=== PATIENT | female | born 1965 | race Caucasian/White ===

== ENCOUNTER → 2018-02-03 11:12 | Outpatient (CLI) | payer BC, SELFPAY ==
[2018-02-03 12:00] LABS: Hematocrit 36.9 % (36-46); Hemoglobin 12.7 g/dL (12.0-16.0); Mean Corpuscular HGB Conc 34.5 % (30-36); Mean Corpuscular Hemoglobin 30.7 PG (26-34); Platelet Count 401 X10^3/uL (150-400); Red Blood Cell Count 4.15 X10^6/uL (4.0-5.2); Red Cell Distribution Width 13.9 % (11.6-14.8); White Blood Cell Count 7.6 X10^3/uL (4.5-11.0)
[2018-02-03 12:03] LABS: Alanine Aminotransferase 24 IU/L (9-52); Albumin 4.3 g/dL (3.5-5.0); Albumin Globulin Ratio 1.6 (1.0-2.8); Alkaline Phosphatase 49 U/L (38-126); Aspartate Aminotransferase 17 IU/L (14-36); BUN Creatinine Ratio 16.3 (6-22); Bilirubin Total 0.2 mg/dL (0.2-1.3); Blood Urea Nitrogen 13 mg/dL (7-17); Calcium 9.2 mg/dL (8.4-10.2); Carbon Dioxide 27 mmol/L (22-32); Chloride 107 mmol/L (98-107); Cholesterol 157 mg/dL (140-199); Estimated Glomerular Filt Rate > 60.0 mL/min (>60); Globulin 2.7 g/dL (1.7-4.1); Glucose 100 mg/dL (70-100); HDL Cholesterol 56 mg/dL (40-60); HEMOLYSIS < 15 (0-50); LDL Cholesterol Calculated 87 mg/dL (<100); Sodium 145 mmol/L (137-145); Triglycerides 68 mg/dL (35-150)
[2018-02-03 12:16] LABS: Free T3, Triiodothyronine Free 2.67 pg/mL (2.77-5.27); Free T4, Direct Thyroxine 1.01 ng/dL (0.78-2.19)
[2018-02-03 12:29] LABS: Thyroid Stimulating Hormone 3.27 uIU/mL (0.47-4.68)
== END ==
PROVIDERS: Family Provider Physician Assistant; PCP Physician Assistant; Visit Provider Physician Assistant
DX: E03.9 Hypothyroidism, unspecified (principal); E78.5 Hyperlipidemia, unspecified; F32.9 Major depressive disorder, single episode, unspecified; J45.909 Unspecified asthma, uncomplicated; Z51.81 Encounter for therapeutic drug level monitoring
CPT/HCPCS: 36415; 80053; 80061; 84439; 84443; 84481; 85027

== ENCOUNTER → 2018-04-08 14:54 | Outpatient (CLI) | payer BC, SELFPAY ==
--- NOTE | 2018-04-08 15:00 | DI.MG.S_ITS ---
BILATERAL DIGITAL SCREENING MAMMOGRAM 3D/2D WITH CAD: 04/08/2018 CLINICAL: Routine screening. Family history of breast cancer. Comparison is made to exams dated: 07/23/2012 mammogram, 07/06/2007 mammogram, and 06/25/2006 mammogram - [facility]. The tissue of both breasts is heterogeneously dense. This may lower the sensitivity of mammography. Current study was also evaluated with a Computer Aided Detection (CAD) system. There are benign calcifications in both breasts. No significant masses, calcifications, or other findings are seen in either breast. There has been no significant interval change. IMPRESSION: There is no mammographic evidence of malignancy. A 1 year screening mammogram is recommended. This exam was interpreted at Station ID: [id number]. NOTE: For mammograms, a report in lay terms will be sent to the patient. Approximately 15% of breast malignancies will not be visualized mammographically. In the management of a palpable breast mass, a negative mammogram must not discourage biopsy of a clinically suspicious lesion. Electronically Signed By: Carlin nance/tunde:04/08/2018 17:55:20 letter sent: Normal Exam ACR BI-RADS Category 2: Benign Finding(s) 3342F
== END ==
PROVIDERS: Family Provider Physician Assistant; PCP Physician Assistant; Visit Provider Physician Assistant
DX: Z12.31 Encounter for screening mammogram for malignant neoplasm of breast (principal); Z80.3 Family history of malignant neoplasm of breast
CPT/HCPCS: 77063; 77067

== ENCOUNTER 2018-05-13 12:25 | Day surgery (SDC) | payer BC, SELFPAY ==
[2018-05-13] VITALS (8 sets, daily range): BP systolic 120–195; BP diastolic 64–104; PULSE 58–80; RESP 12–20; TEMP 35.7–37.1; O2SAT 97–100; BMI 22.6
[2018-05-13] MEDS: SODIUM CHLORIDE 0.9% 1,000 ML 200 ML IV (13:29)
--- NOTE | 2018-05-13 13:34 | P.HP_ITS ---
History of Present Illness Date Patient Seen: 05/13/18 Time Patient Seen: 13:32 Chief complaint: [id number] Narrative: 52-year-old female who presents for colorectal screening. She has never had any previous examination for such. On further history denies any recent gastrointestinal symptoms. No nausea, vomiting, abdominal pain, loss of appetite, unexplained weight loss, change in bowel habits, diarrhea, constipation, melena, hematochezia, or bright red blood per rectum. 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) Depression (Chronic) Hyperlipidemia (Chronic 07/18/15) Hypothyroidism (Chronic 07/18/15) Asthma (Chronic 10/19/12) Other mechanical complication of other implanted electronic stimulator of nervous system, initial encounter (Chronic) History of anxiety (Chronic) Mitral valve prolapse (Chronic 07/10/10) Degeneration of intervertebral disc of lumbar region (Chronic) Allergic rhinitis due to pollen (Chronic 01/12/12) GERD (gastroesophageal reflux disease) (Chronic) Herpes (Chronic) Irregular menstrual cycle (Resolved) Kidney stones (Resolved) Surgical History History of fusion of cervical spine (Chronic) Hx of appendectomy (Resolved) Hx of laminectomy (Resolved 10/2012) Hx of tubal ligation (Resolved) History of spinal fusion Status post dilation and curettage Status post exploratory laparotomy Family History Father Drug abuse Rheumatoid arthritis Grandmother Heart disease Mother Alcoholic Arthritis Cancer Diabetes mellitus Heart disease Hypertension High cholesterol History of stroke Social History household members: spouse Smoking Status: Former smoker (I quit 2006) Tobacco: How many years used: 37 second hand exposure: Yes (my smokes) alcohol intake: current (Only on holidays, usually a glass of wine) substance use type: marijuana (medical marijuana) Family & Social History Family History Father Drug abuse Rheumatoid arthritis Grandmother Heart disease Mother Alcoholic Arthritis Cancer Diabetes mellitus Heart disease Hypertension High cholesterol History of stroke Social History: household members spouse Tobacco & Substance use: Smoking Status Former smoker alcohol intake current Meds Home Medications Medication Instructions Recorded Confirmed Type POTASSIUM (#COMPLEXED POTASSIUM) 99 mg PO Q DAY #0 11/05/11 05/13/18 History ascorbic acid (vitamin C) 500 mg PO QDAY #0 04/29/16 05/13/18 History [VITAMIN D3] 400 mg PO QDAY #0 12/22/16 05/13/18 History ferrous sulfate [Feosol] 325 mg PO QDAY #0 12/22/16 05/13/18 History medical marajuana PO 07/16/17 02/08/18 History gabapentin 400 mg capsule See Rx Instructions PO BEDTIME 10/26/17 05/13/18 Rx #180 cap norethindrone acetate-ethinyl 1 tab PO QDAY #63 tab 11/23/17 05/13/18 Rx estradiol 1.5 mg-30 mcg tablet tizanidine 6 mg capsule 6 mg PO TID-QID PRN #90 cap 02/02/18 05/13/18 Rx atorvastatin 20 mg tablet 20 mg PO HS #90 tab 02/08/18 05/13/18 Rx levothyroxine 75 mcg tablet 75 mcg PO HS #90 tab 02/08/18 05/13/18 Rx sertraline 100 mg tablet 100 mg PO Q DAY #30 tab 02/08/18 05/13/18 Rx ondansetron 8 mg disintegrating 8 mg SUBLINGUAL Q8HP PRN #30 odt 03/24/18 05/13/18 Rx tablet fluticasone [Flonase Allergy 1 spray INTRANASAL DAILY PRN 05/13/18 05/13/18 History Relief] omeprazole magnesium [Prilosec OTC] 20 mg PO DAILY PRN 05/13/18 05/13/18 History Allergies Allergy/AdvReac Type Severity Reaction Status Date / Time latex Allergy Mild EDEMA Verified 05/13/18 12:57 fluoxetine AdvReac Severe I DIDN'T Verified 05/13/18 12:57 FEEL LIKE MYSELF, LIKE ON THE OUTSIDE LOOKING IN Review of Systems Review of Systems All systems reviewed & are unremarkable except as noted in HPI and below Exam Vital Signs (past 8 hours): - 05/13/18 13:03 Temperature 98.8 F Pulse Rate 69 Respiratory Rate 16 Blood Pressure 155/88 H Pulse Oximetry 97 Oxygen Delivery Method Room Air Narrative Exam Narrative: Thin female in no acute distress. Alert oriented x3. Sclera nonicteric Regular rate and rhythm No wheezes Abdomen soft, nondistended, nontender Extremities show no clubbing or cyanosis Objective Labs Labs: No recent laboratory or radiographic studies for review Assessment & Plan Assessment & Plan narrative: 52-year-old female requiring colorectal screening by age criteria. Colonoscopy is recommended. Technical details were discussed. Risks, benefits, alternatives explained. Risks including but not limited to sedation, aspiration, bleeding, pain, missed lesion, incomplete examination, need for further radiographic studies, colonic perforation, need for major abdominal surgery, and all attendant risks major surgery were discussed at [facility]. All questions were answered to her satisfaction, and she voiced understanding. Consent was placed on the chart. Proceed as above.
--- NOTE | 2018-05-13 13:34 | PM.PREOP ---
Pre-operative Note Interval Note History & Physical reviewed/Exam performed by Physician: Yes Changes to H&P: No H&P completed within 30 days and has changed as indicated here:: Patient seen and examined today. History and physical examination placed on the chart. Obviously, no changes in the last 15 min. Proceed with colonoscopy today as planned. ASA Class (for procedural sedation): II
[2018-05-13] MEDS: fentaNYL 250 MCG/5 ML INJ IV (13:58)
[2018-05-13] MEDS: MIDAZOLAM 5 MG/5 ML VIAL IV (13:59)
--- NOTE | 2018-05-13 14:05 | PM.OP.ENDO ---
Operative Date/Time/Diagnoses Date of procedure: 05/13/18 Time of procedure: 14:05 Pre-op diagnosis: Colorectal screening Post-op diagnosis: other (Diverticulosis but otherwise normal colon and rectum) Procedure & Clinicians Study performed: 1. Sedation per surgeon 2. Colonoscopy Same procedure as scheduled: Yes Indications: 52-year-old female who presents for colorectal screening by age criteria. Colonoscopy is recommended. Surgeon: Osmany Bailey Procedure Notes SCOAP/Timeout: Yes Procedure in detail: After obtaining informed consent, the patient was brought to the GI suite and placed in the left lateral decubitus position on the examination table. After placement of appropriate monitors, the patient was given incremental doses of Versed and Fentanyl until an appropriate level of sedation was achieved. A time out was held per SCOAP protocol. A digital rectal examination was performed and did not reveal any masses or obstructing lesions. The colonoscope was gently passed into the patient's anus and the entire colon navigated to the level of the cecum with minimal difficulty. Once in the cecum, the scope was withdrawn being sure to go before and beyond all mucosal folds and prominences and get an excellent examination. The findings are noted above. At the level of the rectal vault, the scope was retroflexed and the internal anal canal was examined. The scope was straightened and air aspirated from the colon. The instrument was removed from the patient's body and the procedure was concluded. The patient was allowed to awaken from sedation without difficulty and taken to the post-anesthesia care unit in good condition. Scope withdrawal time: 8:47 min Sedation minutes: 26 Findings: diverticulosis and other findings (Otherwise normal colon and rectum) Specimen(s): none sent Complications: none Recommendations: Colonscopy in 10 years and High fiber diet Plan for aftercare: 1. Discharge home Follow up: as needed Disposition: PACU
--- NOTE | 2018-05-13 15:22 | SUR.PHASEII ---
Pt ambulated to bathroom prior to dc. Pt alert and talking to RN. Pt continues to deny any sob, headache or cp related to blood pressure reading. pt dc to home via Dr. Alexus hutchinson. Pt reminded to take regular scheduled meds once arriving at home and to call MD office if any concerns or symptoms. Pt and pt voiced understanding. Pt asymptomatic and abd soft at time of dc.
== END 2018-05-13 15:15 | disposition home or self-care (01) ==
PROVIDERS: PCP Physician Assistant; Visit Provider Surgery
PROC: 0DJD8ZZ Inspection of Lower Intestinal Tract, Via Natural or Artificial Opening Endoscopic (ICD-10-PCS; CPT 45378; principal; 2018-05-13 14:00)
DX: Z12.11 Encounter for screening for malignant neoplasm of colon (principal); K57.30 Diverticulosis of large intestine without perforation or abscess without bleeding; G89.4 Chronic pain syndrome; F32.9 Major depressive disorder, single episode, unspecified; E78.5 Hyperlipidemia, unspecified; E03.9 Hypothyroidism, unspecified; J45.909 Unspecified asthma, uncomplicated
CPT/HCPCS: 45378; 99152; 99153; J2250; J3010

== ENCOUNTER → 2018-09-17 09:15 | Outpatient (CLI) | payer BC, SELFPAY ==
[2018-09-17 10:18] LABS: Add Manual Diff / Slide Review NO; Basophils Absolute Auto 100 /uL (0-100); Basophils Percent Auto 1.3 % (0-2); Eosinophils Absolute Auto 300 /uL (0-450); Eosinophils Percent Auto 3.1 % (2-4); Hematocrit 36.1 % (36-46); Hemoglobin 12.3 g/dL (12.0-16.0); Lymphocytes Absolute Auto 2200 /uL (1100-4500); Lymphocytes Percent Auto 26.2 % (25-40); Mean Corpuscular HGB Conc 34.1 % (30-36); Mean Corpuscular Hemoglobin 30.3 PG (26-34); Mean Corpuscular Volume 88.9 fL (80-100); Monocytes Absolute Auto 500 /uL (0-900); Monocytes Percent Auto 5.5 % (3-14); Neutrophils Absolute Auto 5400 /uL (1500-7000); Neutrophils Percent Auto 63.9 % (50-75); Platelet Count 426 X10^3/uL (150-400); Red Blood Cell Count 4.06 X10^6/uL (4.0-5.2); Red Cell Distribution Width 13.5 % (11.6-14.8); White Blood Cell Count 8.4 X10^3/uL (4.5-11.0)
[2018-09-17 10:20] LABS: Alanine Aminotransferase 15 IU/L (9-52); Albumin 4.1 g/dL (3.5-5.0); Albumin Globulin Ratio 1.5 (1.0-2.8); Alkaline Phosphatase 45 U/L (38-126); Aspartate Aminotransferase 20 IU/L (14-36); BUN Creatinine Ratio 13.8 (6-22); Bilirubin Total 0.4 mg/dL (0.2-1.3); Blood Urea Nitrogen 11 mg/dL (7-17); Calcium 9.4 mg/dL (8.4-10.2); Carbon Dioxide 29 mmol/L (22-32); Chloride 108 mmol/L (98-107); Cholesterol 156 mg/dL (140-199); Estimated Glomerular Filt Rate > 60.0 mL/min (>60); Globulin 2.8 g/dL (1.7-4.1); Glucose 89 mg/dL (70-100); HDL Cholesterol 50 mg/dL (40-60); HEMOLYSIS < 15 (0-50); LDL Cholesterol Calculated 81 mg/dL (<100); Potassium 4.5 mmol/L (3.4-5.1); Sodium 142 mmol/L (137-145); Total Protein 6.9 g/dL (6.3-8.2); Triglycerides 126 mg/dL (35-150)
[2018-09-17 10:53] LABS: Ferritin 10.4 ng/mL (11.1-264)
[2018-09-17 11:06] LABS: HEMOLYSIS < 15 (0-50); Iron 107 ug/dL (37-170)
--- NOTE | 2018-09-17 11:09 | DI.US.S_ITS ---
PROCEDURE: US PELVIC COMPLETE INDICATIONS: MENORRHAGIA ON OCP'S TECHNIQUE: Real-time scanning was performed of the pelvic organs, with image documentation. Additional endovaginal scanning was necessary due to incomplete visualization of the adnexal and endometrial structures by transabdominal scanning. COMPARISON: [facility], , PELVIC COMPLETE, 04/29/2016, 15:13. FINDINGS: Transabdominal scanning: Limited scanning through the kidneys shows no hydronephrosis. No pathologic free abdominal or pelvic fluid. Endovaginal scanning: Uterus: Uterus is normal in size at 8.2 x 3.6 x 5.1 cm. The endometrium measures 5 mm in combined thickness. Multiple intrauterine fibroids are again noted. They appear to have increased in size. There is a submucosal fibroid on the right side of the uterus measuring 2.0 x 1.9 x 1.9 cm. A subserosal left-sided anterior uterine fibroid measures 1.9 x 1.4 x 1.4 cm. A posterior intramural uterine fibroid is noted slightly left of midline measuring 1.5 x 1.2 x 1.6 cm. Ovaries: The bilateral ovaries were not well visualized do to overlying bowel gas. IMPRESSION: Multi-fibroid uterus as before. The imaged fibroids appear to have increased in size compared to 2017 pelvic ultrasound. Additionally, 2 of the fibroids appear to be submucosal in location and may represent a possible etiology for patient's menorrhagia. Bilateral ovaries were not visualized secondary to overlying bowel gas. Dictated by: Carlin Castillo M.D. on 09/17/2018 at 16:57 Approved by: Carlin Castillo M.D. on 09/17/2018 at 17:13
[2018-09-17 11:18] LABS: Percent Iron Saturation 28 % (15-50); Total Iron Binding Capacity 376 ug/dL (265-497); Transferrin 311 mg/dL (206-381)
[2018-09-17 11:37] LABS: Thyroid Stimulating Hormone 2.82 uIU/mL (0.47-4.68)
== END ==
PROVIDERS: PCP Physician Assistant; Visit Provider Physician Assistant
DX: N92.0 Excessive and frequent menstruation with regular cycle (principal); N92.4 Excessive bleeding in the premenopausal period; Z79.3 Long term (current) use of hormonal contraceptives; D25.1 Intramural leiomyoma of uterus; D25.0 Submucous leiomyoma of uterus; D25.2 Subserosal leiomyoma of uterus; E03.9 Hypothyroidism, unspecified; E78.5 Hyperlipidemia, unspecified; D50.0 Iron deficiency anemia secondary to blood loss (chronic)
CPT/HCPCS: 36415; 76830; 76856; 80053; 80061; 82728; 83540; 83550; 84443; 85025

== ENCOUNTER 2018-10-18 08:21 | Day surgery (SDC) | payer BC, SELFPAY ==
[2018-10-18] VITALS (8 sets, daily range): BP systolic 109–153; BP diastolic 71–95; PULSE 72–99; RESP 12–99; TEMP 36.6–37.3; O2SAT 96–99; BMI 22.1
[2018-10-18] MEDS: SODIUM CHLORIDE 0.9% 1,000 ML 200 ML IV (09:25)
--- NOTE | 2018-10-18 09:47 | PM.PREOP ---
Pre-operative Note Interval Note History & Physical reviewed/Exam performed by Physician: Yes Changes to H&P: No ASA Class (for procedural sedation): II
[2018-10-18] MEDS: LIDOCAINE VISCOUS 2% 15 ML SOLUTION PO (10:15)
[2018-10-18] MEDS: ONDANSETRON 4 MG/2 ML INJ IV (10:16)
[2018-10-18] MEDS: MIDAZOLAM 5 MG/5 ML VIAL IV (10:33)
[2018-10-18] MEDS: fentaNYL 250 MCG/5 ML INJ IV (10:33)
--- NOTE | 2018-10-18 10:53 | PM.OP.ENDO ---
Operative Date/Time/Diagnoses Date of procedure: 10/18/18 Time of procedure: 10:54 Pre-op diagnosis: abdominal pain melena Post-op diagnosis: other (hiatal hernia) Procedure & Clinicians Study performed: esophagoduodenoscopy colonoscopy Same procedure as scheduled: Yes Indications: abdominal pain melena Surgeon: Lamin Lockwood Procedure Notes SCOAP/Timeout: performed Procedure in detail: The bite block was inserted. The endoscope was carefully advanced to the mouth into the esophagus and into the stomach. The stomach had no evidence of gastritis. Retroflexion demonstrated a small hiatal hernia. The pylorus was intubated and was out ulcer. The Z-line was identified and was normal in its appearance. There was no evidence of soft edge itis. The stomach was desufflated and the scope was carefully withdrawn. Next a digital rectal exam was performed which was normal. The colonoscopy was inserted into the of rectum sigmoid advanced through the descending transverse and ascending colon. The ileocecal valve was identified. The scope was carefully withdrawn. The colon was notable only for mild diverticulosis. No polyps or masses were identified. The scope was carefully withdrawn. Scope withdrawal time: 6 Sedation minutes: 31 Findings: diverticulosis and hiatal hernia Specimen(s): none sent Complications: none Impression: normal colonoscopy. Normal esophagoduodenoscopy Recommendations: Other recommendation (Will refer to GI for management of irritable bowel syndrome previously diagnosed. ) Disposition: same day surgery
== END 2018-10-18 12:15 | disposition home or self-care (01) ==
PROVIDERS: PCP Physician Assistant; Visit Provider Surgery
PROC: 0DJ08ZZ Inspection of Upper Intestinal Tract, Via Natural or Artificial Opening Endoscopic (ICD-10-PCS; CPT 43235; principal; 2018-10-18 09:45)
PROC: 0DJD8ZZ Inspection of Lower Intestinal Tract, Via Natural or Artificial Opening Endoscopic (ICD-10-PCS; CPT 45378; 2018-10-18 09:45)
DX: K92.1 Melena (principal); K44.9 Diaphragmatic hernia without obstruction or gangrene; K57.30 Diverticulosis of large intestine without perforation or abscess without bleeding; R10.9 Unspecified abdominal pain; R19.7 Diarrhea, unspecified; E78.5 Hyperlipidemia, unspecified; E03.9 Hypothyroidism, unspecified; J45.909 Unspecified asthma, uncomplicated; K21.9 Gastro-esophageal reflux disease without esophagitis; I34.1 Nonrheumatic mitral (valve) prolapse; F32.9 Major depressive disorder, single episode, unspecified; F41.9 Anxiety disorder, unspecified; Z87.891 Personal history of nicotine dependence
CPT/HCPCS: 43235; 45378; 74177; 99152; 99153; J2250; J2405; J3010; Q9967

== ENCOUNTER → 2018-10-25 13:06 | Outpatient (CLI) | payer BC, SELFPAY ==
--- NOTE | 2018-10-25 13:21 | DI.CT.S_ITS ---
PROCEDURE: CT ABDOMEN PELVIS W CON INDICATIONS: abdominal pain w bloating and nausea TECHNIQUE: After the administration of oral and intravenous contrast, 5 mm thick sections acquired from the diaphragms to the symphysis. 5 mm thick coronal and sagittal reformats were performed. For radiation dose reduction, the following was used: automated exposure control, adjustment of mA and/or kV according to patient size. COMPARISON: Pelvic ultrasound of 09/17/2018. [facility], CT, ABDOMEN/PELVIS WITH CONTRAST, 05/01/2016, 23:47. FINDINGS: Image quality: Excellent. ABDOMEN: Lung bases: Lung bases are clear. Heart size is normal. Solid organs: Liver is normal in size. Hyperdense focus in the posterior medial right lobe, (2/13) is unchanged. Left lobe subcapsular hypodensity which most likely represents a benign cyst or hemangioma, (2/9). Subcentimeter flash filling hemangioma in the inferior right lobe (2/29). Hypodensity at the falciform ligament most likely represents focal fatty infiltration. Punctate extracapsular calcification at lateral to the right lobe, unchanged. Gallbladder is decompressed. No calcified gallstones. No pericholecystic fluid.. Biliary system is non-dilated. Pancreas enhances normally. Spleen is normal in size and enhancement. No adrenal nodules. Kidneys are normal in size and enhancement, without hydronephrosis. Left kidney extrarenal pelvis. Several small nonobstructing renal calculi bilaterally. Peritoneum and bowel: The rectal wall appears somewhat thickened. There is tracer fluid in the pelvis. There appears to be adjacent mesenteric engorgement. Loops of small bowel in the left upper quadrant are also mildly thickened. The stomach is prominent size. No bowel injection. No pneumatosis or pneumoperitoneum. Nodes and vessels: No retroperitoneal or mesenteric adenopathy. Aorta and inferior vena cava are normal in caliber. Mild ectasia of the abdominal aorta. There is noncalcified atherosclerotic plaque which appears similar to 05/01/2016. Mesenteric vessels are patent. Miscellaneous: Tiny fat-containing periumbilical hernia, unchanged. Neurostimulator leads in the mid thorax with the generator device at the left buttocks. PELVIS: Genitourinary: Subserosal fundal fibroid measuring 1.7 cm, (5/36). The fibroid demonstrate central hypodensity which was not appreciated on the note CT from 05/01/2016. No surrounding inflammatory change. Metallic clip in the region of the left adnexa. Bladder is unremarkable. Miscellaneous: No inguinal hernias or adenopathy. Bones: No suspicious bony lesions. Mild DDD most pronounced at L5-S1. No vertebral body compression fractures. IMPRESSION: 1. Nonspecific thickening of the small bowel in the left abdomen and rectum. Trace free fluid in the pelvis.These findings could be seen in enteritis or proctitis. Correlation with inflammatory markers and colonoscopy may be beneficial. 2. Increased hypodensity in a subserosal fundal fibroid which may be due to fibroid degeneration. It is uncertain if this is related to the patient's symptoms. Dictated by: Jelani Mckee M.D. on 10/25/2018 at 16:28 Approved by: Jelani Mckee M.D. on 10/25/2018 at 16:51
== END ==
PROVIDERS: PCP Physician Assistant; Visit Provider Surgery
DX: R10.9 Unspecified abdominal pain (principal); R14.0 Abdominal distension (gaseous); R11.0 Nausea; D25.2 Subserosal leiomyoma of uterus
CPT/HCPCS: 74177; Q9967

== ENCOUNTER → 2019-01-04 13:46 | Outpatient (CLI) | payer BC, SELFPAY ==
[2019-01-04 14:31] LABS: Add Manual Diff / Slide Review NO; Basophils Absolute Auto 100 /uL (0-100); Basophils Percent Auto 0.8 % (0-2); Eosinophils Absolute Auto 100 /uL (0-450); Eosinophils Percent Auto 1.5 % (2-4); Hematocrit 36.2 % (36-46); Hemoglobin 12.2 g/dL (12.0-16.0); Lymphocytes Absolute Auto 2400 /uL (1100-4500); Lymphocytes Percent Auto 26.9 % (25-40); Mean Corpuscular HGB Conc 33.8 % (30-36); Mean Corpuscular Hemoglobin 30.3 PG (26-34); Mean Corpuscular Volume 89.5 fL (80-100); Monocytes Absolute Auto 600 /uL (0-900); Monocytes Percent Auto 6.1 % (3-14); Neutrophils Absolute Auto 5800 /uL (1500-7000); Neutrophils Percent Auto 64.7 % (50-75); Platelet Count 375 X10^3/uL (150-400); Red Blood Cell Count 4.04 X10^6/uL (4.0-5.2); Red Cell Distribution Width 13.6 % (11.6-14.8)
[2019-01-04 16:01] LABS: Ferritin 10.4 ng/mL (11.1-264)
== END ==
PROVIDERS: PCP Physician Assistant; Visit Provider Physician Assistant
DX: R79.0 Abnormal level of blood mineral (principal); R79.89 Other specified abnormal findings of blood chemistry
CPT/HCPCS: 36415; 82728; 85025

== ENCOUNTER → 2019-04-28 15:22 | Outpatient (CLI) | payer BC, SELFPAY ==
--- NOTE | 2019-04-28 15:24 | DI.MG.S_ITS ---
BILATERAL DIGITAL SCREENING MAMMOGRAM 3D/2D WITH CAD: 04/28/2019 CLINICAL: Routine screening. Family history of breast cancer. Comparison is made to exams dated: 04/08/2018 mammogram and 07/23/2012 mammogram - [facility]. The tissue of both breasts is heterogeneously dense. This may lower the sensitivity of mammography. Current study was also evaluated with a Computer Aided Detection (CAD) system. There are benign calcifications in both breasts. No significant masses, calcifications, or other findings are seen in either breast. There has been no significant interval change. IMPRESSION: There is no mammographic evidence of malignancy. A 1 year screening mammogram is recommended. This exam was interpreted at Station ID: [id number]. NOTE: For mammograms, a report in lay terms will be sent to the patient. Approximately 15% of breast malignancies will not be visualized mammographically. In the management of a palpable breast mass, a negative mammogram must not discourage biopsy of a clinically suspicious lesion. Electronically Signed By: Jelani Mckee M.D. [facility] [place]:04/28/2019 19:23:15 letter sent: Normal Exam ACR BI-RADS Category 2: Benign Finding(s) 3342F
== END ==
PROVIDERS: PCP Physician Assistant; Referring Provider Physician Assistant; Visit Provider Physician Assistant
DX: Z12.31 Encounter for screening mammogram for malignant neoplasm of breast (principal); Z80.3 Family history of malignant neoplasm of breast
CPT/HCPCS: 77063; 77067

== ENCOUNTER → 2022-01-07 14:50 | Outpatient (CLI) | payer BC, SELFPAY ==
--- NOTE | 2022-01-07 14:58 | DI.MG.S_ITS ---
BILATERAL DIGITAL SCREENING MAMMOGRAM 3D/2D WITH CAD: 01/07/2022 CLINICAL: Routine screening. Family history of breast cancer. Comparison is made to exams dated: 04/28/2019 mammogram, 04/08/2018 mammogram, and 07/23/2012 mammogram - [facility]. Both breasts are heterogeneously dense, which may obscure small masses (category c / 51-75% glandular tissue). Current study was also evaluated with a Computer Aided Detection (CAD) system. There is an asymmetry in the left breast posterior depth lateral region seen on the craniocaudal view only. No other significant masses, calcifications, or other findings are seen in either breast. IMPRESSION: INCOMPLETE: NEEDS ADDITIONAL IMAGING EVALUATION The asymmetry in the left breast is indeterminate. Exaggerated CC views as well as additional views with possible ultrasound are recommended. Based on Tyrer-Cuzick model (a risk assessment model), the patient's lifetime risk is 20.3% and her 10 year risk is 6.5%. If a patient has an elevated risk, a more comprehensive evaluation should be considered and/or a referral to a genetic counselor. The [place] [employer], [employer], and NCCN Guidelines advise the consideration of Breast MRI as an adjunct to screening mammography in patients whose Lifetime risk to develop breast cancer is 20% or higher. This exam was interpreted at Station ID: [id number]. NOTE: For mammograms, a report in lay terms will be sent to the patient. Approximately 15% of breast malignancies will not be visualized mammographically. In the management of a palpable breast mass, a negative mammogram must not discourage biopsy of a clinically suspicious lesion. Electronically Signed By: Yovana espino/:01/07/2022 16:34:48 letter sent: Additional Imaging Needed ACR BI-RADS Category 0: Incomplete 3340F
--- NOTE | 2022-01-07 14:59 | DI.RAD.S_ITS ---
PROCEDURE: XR FINGER RT MIN 2V INDICATIONS: PAIN IN RIGHT FINGER/THUMB TECHNIQUE: AP hand, 2 views of the 1st finger(s) acquired. COMPARISON: None. FINDINGS: Bones: No fractures or dislocations. Osteoarthritic changes are noted throughout right thumb most notably at 1st CMC joint with near complete loss of joint space, extensive subchondral sclerosis and cyst formation and marginal osteophyte formation. Slight lateral subluxation at 1st CMC joint is also seen. No suspicious bony lesions. Soft tissues: No suspicious soft tissue calcifications. IMPRESSION: Osteoarthritic changes throughout right thumb most notably at 1st CMC joint as above. No fracture or dislocation. Dictated by: Bradley Duncan M.D. on 01/07/2022 at 16:43 Approved by: Bradley Duncan M.D. on 01/07/2022 at 16:45
== END ==
PROVIDERS: PCP Family Medicine; Referring Provider Family Medicine; Visit Provider Family Medicine
DX: Z12.31 Encounter for screening mammogram for malignant neoplasm of breast (principal); M79.644 Pain in right finger(s); M65.4 Radial styloid tenosynovitis [de Quervain]; Z80.3 Family history of malignant neoplasm of breast
CPT/HCPCS: 73140; 77063; 77067

== ENCOUNTER → 2022-03-17 08:40 | Outpatient (CLI) | payer BC, SELFPAY ==
--- NOTE | 2022-03-17 | DI.MG.S_ITS ---
UNILATERAL LEFT DIGITAL DIAGNOSTIC MAMMOGRAM 3D/2D WITH ADDITIONAL VIEWS: 03/17/2022 CLINICAL: Additional evaluation requested from prior study. Comparison is made to exams dated: 01/07/2022 mammogram, 04/28/2019 mammogram, and 04/08/2018 mammogram - [facility]. The left breast is heterogeneously dense, which may obscure small masses (category c / 51-75% glandular tissue). Redemonstration of previously described asymmetry in the left breast posterior depth lateral region seen on the craniocaudal view only. This is less prominent and decreased in size. No other significant masses or calcifications are seen in the breast. IMPRESSION: INCOMPLETE: NEEDS ADDITIONAL IMAGING EVALUATION The asymmetry in the left breast resembles fibroglandular tissue but remains indeterminate. An ultrasound is recommended for further evaluation and is scheduled to immediately follow this examination. Based on Tyrer-Cuzick model (a risk assessment model), the patient's lifetime risk is 20.3% and her 10 year risk is 6.5%. If a patient has an elevated risk, a more comprehensive evaluation should be considered and/or a referral to a genetic counselor. The [place] [employer], [place] [employer], and NCCN Guidelines advise the consideration of Breast MRI as an adjunct to screening mammography in patients whose Lifetime risk to develop breast cancer is 20% or higher. This exam was interpreted at Station ID: [id number]. NOTE: For mammograms, a report in lay terms will be sent to the patient. Approximately 15% of breast malignancies will not be visualized mammographically. In the management of a palpable breast mass, a negative mammogram must not discourage biopsy of a clinically suspicious lesion. Electronically Signed By: Carlin Castillo M.D. [facility]/:03/17/2022 11:00:44 ACR BI-RADS Category 0: Incomplete 3340F
--- NOTE | 2022-03-17 | DI.US.S_ITS ---
ULTRASOUND OF LEFT BREAST AND AXILLA: 03/17/2022 CLINICAL: Patient returns today to evaluate an asymmetry in the left breast. Comparison is made to exams dated: 03/17/2022 mammogram, 01/07/2022 mammogram, 04/28/2019 mammogram, 04/08/2018 mammogram, 07/23/2012 mammogram, and 07/06/2007 mammogram - [facility]. Color flow and real-time ultrasound of the left breast axilla were performed. Price scale images of the real-time examination were reviewed. There is a 0.5 cm x 0.2 cm x 0.5 cm wider than tall oval cyst in the left breast at 3 o'clock posterior depth 5 cm from the nipple. This oval cyst is hypoechoic with internal echoes. This likely correlates with mammography findings. Color flow imaging demonstrates that there is no vascularity present. There also is a 0.7 cm x 0.3 cm x 0.5 cm wider than tall oval mass in the left breast at 3 o'clock anterior depth 1 cm from the nipple. This oval mass is hypoechoic with apparent fatty hilum. Color flow imaging demonstrates that there is central hilar vascularity present. This correlates as an incidental finding. Additionally, there is a 0.3 cm x 0.2 cm x 0.3 cm oval mass in the left breast at 3 o'clock in the retroareolar region. This oval mass is hypoechoic. Color flow imaging demonstrates that there is central vascularity present. In addition, there is an enlarged lymph node with uniform cortex in the left axillary tail. This enlarged lymph node is hypoechoic with fatty hilum and likely reactive in etiology. IMPRESSION: PROBABLY BENIGN The 0.5 cm x 0.2 cm x 0.5 cm wider than tall oval cyst in the left breast at 3 o'clock posterior depth resembles a complicated cyst and is probably benign. The 0.7 cm x 0.3 cm x 0.5 cm wider than tall oval mass in the left breast at 3 o'clock anterior depth resembles a lymph node and is probably benign. The 0.3 cm x 0.2 cm x 0.3 cm oval mass in the left breast at 3 o'clock in the retroareolar region resembles a lymph node and is probably benign. The enlarged lymph node with uniform cortical thickening in the left axillary tail is consistent with a reactive lymph node and is probably benign. A follow-up left mammogram and a left ultrasound in 6 months is recommended to demonstrate stability. Findings and recommendations were conveyed to the patient during today's evaluation. This exam was interpreted at Station ID: [id number]. Electronically Signed By: Carlin Castillo M.D. [facility]/:03/17/2022 11:08:13 letter sent: Followup Recommended Ultrasound BI-RADS: 3 Probably benign
== END ==
PROVIDERS: PCP Family Medicine; Referring Provider Family Medicine; Visit Provider Family Medicine
DX: R92.2 Inconclusive mammogram (principal); N63.25 Unspecified lump in the left breast, overlapping quadrants; N60.02 Solitary cyst of left breast
CPT/HCPCS: 76642; 77065; G0279

== ENCOUNTER → 2022-10-13 11:55 | Outpatient (CLI) | payer BC, SELFPAY ==
--- NOTE | 2022-10-13 | DI.MG.S_ITS ---
UNILATERAL LEFT DIGITAL DIAGNOSTIC MAMMOGRAM 3D/2D SHORT-TERM FOLLOW-UP: 10/13/2022 CLINICAL: Short term follow up for the left breast. Comparison is made to exams dated: 03/17/2022 mammogram, 01/07/2022 mammogram, and 04/28/2019 mammogram - [facility]. The left breast is heterogeneously dense, which may obscure small masses (category c / 51-75% glandular tissue). The asymmetry in the left breast posterior depth lateral region seen on the craniocaudal view only is no longer seen. No other significant masses or calcifications are seen in the breast. IMPRESSION: INCOMPLETE: NEEDS ADDITIONAL IMAGING EVALUATION Negative left mammogram. An ultrasound is recommended to evaluate the previously seen sonographic abnormalities, and will be performed immediately following this exam. Based on Tyrer-Cuzick model (a risk assessment model), the patient's lifetime risk is 20.3% and her 10 year risk is 6.5%. If a patient has an elevated risk, a more comprehensive evaluation should be considered and/or a referral to a genetic counselor. The [place] [employer], [place] [employer], and NCCN Guidelines advise the consideration of Breast MRI as an adjunct to screening mammography in patients whose Lifetime risk to develop breast cancer is 20% or higher. This exam was interpreted at Station ID: [id number]. NOTE: For mammograms, a report in lay terms will be sent to the patient. Approximately 15% of breast malignancies will not be visualized mammographically. In the management of a palpable breast mass, a negative mammogram must not discourage biopsy of a clinically suspicious lesion. Electronically Signed By: Yovana Clayton M.D. lk/:10/13/2022 12:25:34 ACR BI-RADS Category 0: Incomplete 3340F
--- NOTE | 2022-10-13 | DI.US.S_ITS ---
LIMITED ULTRASOUND OF LEFT BREAST AND AXILLA: 10/13/2022 CLINICAL: Patient returns today to evaluate three focal asymmetries in the left breast. Comparison is made to exams dated: 10/13/2022 mammogram, 03/17/2022 ultrasound, 03/17/2022 mammogram, 01/07/2022 mammogram, 04/28/2019 mammogram, and 04/08/2018 mammogram - [facility]. Color flow ultrasound of the left breast axilla was performed. Price scale images of the real-time examination were reviewed. There is a stable oval complicated cyst in the left breast at 3 o'clock posterior depth. This oval complicated cyst is hypoechoic. There also is a stable oval complicated cyst in the left breast at 3 o'clock anterior depth. This oval complicated cyst is hypoechoic. Additionally, there is a stable oval complicated cyst in the left breast at 3 o'clock in the retroareolar region. This oval complicated cyst is hypoechoic. In addition, there is a benign lymph node in the left axillary tail. This lymph node displays fatty hilum. IMPRESSION: PROBABLY BENIGN The lymph node in the left axillary tail is benign. The stable oval complicated cyst in the left breast at 3 o'clock posterior depth is probably benign. The stable oval complicated cyst in the left breast at 3 o'clock anterior depth is probably benign. The stable oval complicated cyst in the left breast at 3 o'clock in the retroareolar region is probably benign. A follow-up ultrasound in 6 months is recommended to demonstrate stability. This exam was interpreted at Station ID: [id number]. Electronically Signed By: Yovana espino/:10/13/2022 13:23:23 letter sent: Followup Recommended Ultrasound BI-RADS: 3 Probably benign
== END ==
PROVIDERS: PCP Family Medicine; Referring Provider Family Medicine; Visit Provider Family Medicine
DX: N60.02 Solitary cyst of left breast (principal); R92.2 Inconclusive mammogram
CPT/HCPCS: 76642; 77065; G0279

== ENCOUNTER 2022-12-11 14:34 | Emergency (ER) | payer BC, SELFPAY ==
[2022-12-11] VITALS (11 sets, daily range): BP systolic 129–182; BP diastolic 73–105; PULSE 60–73; RESP 24; TEMP 36.9; O2SAT 94–99; BMI 20.1
--- NOTE | 2022-12-11 15:44 | ED_ITS ---
HPI - Back Pain/Injury <Chary Greer PA-C - Last Filed: 12/11/22 18:17> General Chief Complaint: Back Pain/Injury Stated Complaint: lower back pain Time Seen by Provider: 12/11/22 15:08 Source: patient History of Present Illness HPI Narrative: Patient is a 57-year-old female with chronic low back pain. She has a spinal stimulator in place. She presents today with an acute exacerbation of her chronic pain after an incident 1 week ago. She was walking up the stairs and tripped over her dog, she did not fall but she twisted her back when she caught herself. Initially she did not have increased pain but about 3 days later she developed severe pain. Her pain is in her low back is spasmy. Current medications include tizanidine, medical marijuana, gabapentin. In the past she was on opiate medications for her pain but has been weaned off of them. She denies any loss of bowel or bladder control, saddle anesthesia, altered sensation in her lower extremities or weakness in her lower extremities. She went to see her primary care who is TOBY Santos, who sent her to the ER for further evaluation. Related Data Home Medications Medication Instructions Recorded Confirmed ferrous sulfate 325 mg (65 mg 325 mg PO QDAY ##0 12/22/16 04/06/19 iron) tablet (Feosol) fluticasone propionate 50 1 spray intranasal DAILY PRN 05/13/18 04/06/19 mcg/actuation nasal Allergy Symptoms spray,suspension (Flonase Allergy Relief) omeprazole magnesium 20 mg 20 mg PO DAILY PRN Acid Reflux 05/13/18 04/06/19 tablet,delayed release (Prilosec OTC) Estroven 1 tab PO BEDTIME 08/30/18 04/06/19 Medical Marijuana See Rx Instructions .Route .COMPLEX 08/30/18 04/06/19 cetirizine 10 mg tablet (Zyrtec) 10 mg PO DAILY PRN allergy symptoms 08/30/18 04/06/19 ibuprofen 200 mg tablet 400 mg PO Q4-6H PRN pain 08/30/18 04/06/19 trisha extract 500 mg capsule cap PO DAILY 08/30/18 04/06/19 opnlldfa-cwro-xdpe 8 mg-folic 400 1 tab PO DAILY 06/24/19 01/29/20 mcg-K 50 mcg-lutein 300 mcg tablet (Centrum Silver Women) melatonin 5 mg capsule 10 mg PO DAILY 09/28/18 04/06/19 Previous Rx's Medication Instructions Recorded norethindrone acetate 1.5 1 tab PO QDAY #84 tabs 08/30/18 mg-ethinyl estradiol 30 mcg tablet (Microgestin) ondansetron 8 mg disintegrating 8 mg sublingual Q8HP nausea and 08/30/18 tablet vomiting ##30 sertraline 100 mg tablet (Zoloft) 100 mg PO Q DAY #90 tabs 08/30/18 omeprazole 20 mg capsule,delayed 20 mg PO DAILY #60 caps 10/18/18 release gabapentin 400 mg capsule See Rx Instructions PO BEDTIME 02/11/19 #180 caps atorvastatin 20 mg tablet (Lipitor) 20 mg PO HS #90 tabs 02/25/19 levothyroxine 75 mcg tablet 75 mcg PO DAILY #90 tabs 02/25/19 diclofenac sodium 1 % topical gel 2 gram topical QID #100 grams 04/06/19 tizanidine 6 mg capsule 6 mg PO TID-QID PRN muscle 04/06/19 spasticity #90 caps diazepam 2 mg tablet 2 mg PO TID PRN muscle spasm #10 12/11/22 tabs Allergies Allergy/AdvReac Type Severity Reaction Status Date / Time latex Allergy Mild EDEMA Verified 04/06/19 10:56 fluoxetine AdvReac Severe I DIDN'T Verified 04/06/19 10:56 FEEL LIKE MYSELF, LIKE ON THE OUTSIDE LOOKING IN Review of Systems <Chary Greer PA-C - Last Filed: 12/11/22 18:17> Review of Systems ROS Unobtainable: All systems reviewed & are unremarkable except as noted in HPI and below Patient History <Chary Greer PA-C - Last Filed: 12/11/22 18:17> Medical History Herpes Irregular menstrual cycle GERD (gastroesophageal reflux disease) Kidney stones Hypothyroidism (07/18/15) Hyperlipidemia (07/18/15) Asthma (10/19/12) Allergic rhinitis due to pollen (01/12/12) Degeneration of intervertebral disc of lumbar region Depression Mitral valve prolapse (07/10/10) History of anxiety Other mechanical complication of other implanted electronic stimulator of nervous system, initial encounter Chronic low back pain with bilateral sciatica Chronic pain syndrome Surgical History Hx of appendectomy Hx of tubal ligation Hx of laminectomy (10/2012) Status post exploratory laparotomy History of spinal fusion Status post dilation and curettage History of fusion of cervical spine Family History Father Drug abuse Rheumatoid arthritis Grandmother Heart disease Mother Alcoholic Arthritis Cancer Diabetes mellitus Heart disease Hypertension High cholesterol History of stroke Social History household members: spouse Smoking Status: Former smoker Tobacco: How many years used: 37 second hand exposure: Yes (my smokes) alcohol intake: current substance use type: marijuana Smoking Status: Former smoker Substance Use Type: marijuana Exam <Chary Greer PA-C - Last Filed: 12/11/22 18:17> Narrative Exam Narrative: GENERAL: 57 year old patient appears stated age. Well-developed patient, writhing in pain, shouts out when she moves. NEURO: AOx3. Bilateral patellar reflexes 2+, achilles reflexes 1+ bilaterally. Sensation to light touch along BLE from femur to foot is normal. No saddle anesthesia to touch. 5/5 strength of BLE against light resistance. HEAD: Atraumatic. Normocephalic. EYES: Pupils equal round and reactive. Extraocular motions intact. No scleral icterus. No injection or drainage. ENT: Nose without bleeding or purulent drainage. Airway patent. CARDIOVASCULAR: Regular rate and rhythm without murmurs, gallops, or rubs. RESPIRATORY: Clear to auscultation. Breath sounds equal bilaterally. No wheezes, rales, or rhonchi. SKIN: No rash or erythema of visible areas Initial Vital Signs Initial Vital Signs: Vital Signs Temperature 98.5 F 12/11/22 14:37 Pulse Rate 70 12/11/22 14:37 Respiratory Rate 24 12/11/22 14:37 Blood Pressure 182/91 H 12/11/22 14:37 Pulse Oximetry 99 12/11/22 14:37 Oxygen Delivery Method Room Air 12/11/22 14:37 <Lorenzo Ashford DO - Last Filed: 12/11/22 18:22> Initial Vital Signs Initial Vital Signs: Vital Signs Temperature 98.5 F 12/11/22 14:37 Pulse Rate 70 12/11/22 14:37 Respiratory Rate 24 12/11/22 14:37 Blood Pressure 182/91 H 12/11/22 14:37 Pulse Oximetry 99 12/11/22 14:37 Oxygen Delivery Method Room Air 12/11/22 14:37 Course <Chary Greer PA-C - Last Filed: 12/11/22 18:17> Orders Ordered: Discontinued Medications Diazepam (Diazepam 5 Mg Tablet) 5 mg PO NOW ONE Stop: 12/11/22 15:25 Last Admin: 12/11/22 15:45 Dose: 5 mg Documented By: KALEB Ketorolac Tromethamine (Ketorolac 30 Mg/Ml Vial) 30 mg IM NOW ONE Stop: 12/11/22 15:25 Last Admin: 12/11/22 15:45 Dose: 30 mg Documented By: KALEB Vital Signs Vital signs: Vital Signs - 8 hr 12/11/22 14:37 12/11/22 14:53 12/11/22 14:54 Temperature 98.5 F Pulse Rate 70 64 64 Respiratory Rate 24 Blood Pressure 182/91 H Pulse Oximetry 99 97 97 Oxygen Delivery Method Room Air 12/11/22 14:54 12/11/22 15:00 12/11/22 15:00 Temperature Pulse Rate 73 Respiratory Rate Blood Pressure 158/98 H 170/105 H Pulse Oximetry 95 Oxygen Delivery Method 12/11/22 15:20 12/11/22 15:20 12/11/22 15:30 Temperature Pulse Rate 64 65 Respiratory Rate Blood Pressure 158/91 H Pulse Oximetry 98 98 Oxygen Delivery Method 12/11/22 15:40 12/11/22 15:40 12/11/22 16:00 Temperature Pulse Rate 70 Respiratory Rate Blood Pressure 152/82 H 129/77 Pulse Oximetry 96 Oxygen Delivery Method 12/11/22 16:00 12/11/22 16:20 12/11/22 16:20 Temperature Pulse Rate 67 67 Respiratory Rate Blood Pressure 144/88 H Pulse Oximetry 94 97 Oxygen Delivery Method 12/11/22 16:30 12/11/22 16:40 12/11/22 16:40 Temperature Pulse Rate 65 60 Respiratory Rate Blood Pressure 134/73 Pulse Oximetry 97 98 Oxygen Delivery Method <Lorenzo Ashford DO - Last Filed: 12/11/22 18:22> Orders Ordered: Discontinued Medications Diazepam (Diazepam 5 Mg Tablet) 5 mg PO NOW ONE Stop: 12/11/22 15:25 Last Admin: 12/11/22 15:45 Dose: 5 mg Documented By: KALEB Ketorolac Tromethamine (Ketorolac 30 Mg/Ml Vial) 30 mg IM NOW ONE Stop: 12/11/22 15:25 Last Admin: 12/11/22 15:45 Dose: 30 mg Documented By: KALEB Vital Signs Vital signs: Vital Signs - 8 hr 12/11/22 14:37 12/11/22 14:53 12/11/22 14:54 Temperature 98.5 F Pulse Rate 70 64 64 Respiratory Rate 24 Blood Pressure 182/91 H Pulse Oximetry 99 97 97 Oxygen Delivery Method Room Air 12/11/22 14:54 12/11/22 15:00 12/11/22 15:00 Temperature Pulse Rate 73 Respiratory Rate Blood Pressure 158/98 H 170/105 H Pulse Oximetry 95 Oxygen Delivery Method 12/11/22 15:20 12/11/22 15:20 12/11/22 15:30 Temperature Pulse Rate 64 65 Respiratory Rate Blood Pressure 158/91 H Pulse Oximetry 98 98 Oxygen Delivery Method 12/11/22 15:40 12/11/22 15:40 12/11/22 16:00 Temperature Pulse Rate 70 Respiratory Rate Blood Pressure 152/82 H 129/77 Pulse Oximetry 96 Oxygen Delivery Method 12/11/22 16:00 12/11/22 16:20 12/11/22 16:20 Temperature Pulse Rate 67 67 Respiratory Rate Blood Pressure 144/88 H Pulse Oximetry 94 97 Oxygen Delivery Method 12/11/22 16:30 12/11/22 16:40 12/11/22 16:40 Temperature Pulse Rate 65 60 Respiratory Rate Blood Pressure 134/73 Pulse Oximetry 97 98 Oxygen Delivery Method MDM - Back Pain/Injury <Chary Greer PA-C - Last Filed: 12/11/22 18:17> MDM Narrative Medical decision making narrative: Multiple etiologies for patient's symptoms considered including, but not limited to: Muscle spasm, cauda equina syndrome, injury to previous surgical site. Patient has a complex low back history with a history of a laminectomy T9-T10 T10-T11 and a cervical spine fusion. Patient's pain treated with Toradol and oral diazepam. After these medications administered, patient much more comfortable and able to complete full exam. Her reflexes, sensation and strength are intact in her lower extremities. She denies any loss of bowel or bladder control or saddle anesthesia. Discussed utility of imaging studies as she was advised to request x-rays or CT scan by her primary care. Discussed that x-rays will not likely be useful and I do not think she meets criteria for an MRI today as she has no signs that would indicate need for urgent surgical intervention. Patient states she understands this and feels like this is more of a muscular pain and spasm. We discussed management of the symptoms including her scheduled routine medications and the addition of as needed diazepam. Discussed the benefits and risks of this medication, patient would like to give it a try over the next several days to reduce her muscle spasms so that she can recover from this incident. She will follow up by phone with her primary care tomorrow and then as needed. I recommended that she reestablish with her habilitation specialist if this acute pain does not improve by next week. Strict return p recautions given. Patient's symptoms improved over duration of stay with above-stated therapies. Findings and discharge diagnosis discussed with patient/family followed by verbalization of understanding Return precautions discussed with patient/family whom verbalize understanding of diagnosis and plan Discharge Plan Departure Patient Disposition: Home Clinical Impression: Chronic low back pain with bilateral sciatica Qualifiers: Back pain laterality: bilateral Qualified Code(s): M54.42 - Lumbago with sciatica, left side Strain of lumbar region Qualifiers: Encounter type: initial encounter Qualified Code(s): S39.012A - Strain of muscle, fascia and tendon of lower back, initial encounter Instructions: DI for Back Pain With Sciatica, DI for Back Spasm Activity Restrictions/Additional Instructions: *You have been diagnosed with acute exacerbation of chronic low back pain. As we discussed, I do not see any signs on exam or in your history that would lead me to believe that this is an injury that requires immediate intervention. I think that you have a muscle strain and spasm in addition to your chronic pain. I will prescribe you a muscle relaxer medication called diazepam to be used short term to help you recover from this acute episode. Do not combine this medication with alcohol, please take your other medications as prescribed. *What to do: *Please continue to take your regular medications as directed. [x] New medication prescriptions sent to your pharmacy: [[facility]] [ ] New medication written as a paper prescription [ ] No new medications given *Please follow up with your primary care provider in 2-3 days, call for an appointment. Let them know you were seen in the Emergency Department and that we ask that you be seen in follow up. We will electronically transmit a record of today's note if your PCP is in our system *If you do not have a primary care provider please contact the [facility] Resource line at [phone]. They will ask some questions about your medical history and help get you set up with a doctor in the community. *Return to Emergency Department if you should have any new, worsening or concerning symptoms, such as [fever greater than 101 F, shaking chills, worsening pain, persistent vomiting or other concerning symptoms]. Prescriptions: New diazepam 2 mg tablet 2 mg PO TID PRN (Reason: muscle spasm) Qty: 10 0RF No Action ferrous sulfate [Feosol] 325 MG tablet 325 mg PO QDAY Qty: 0 gabapentin 400 mg capsule See Rx Instructions PO BEDTIME Qty: 180 1RF Dose Instruction: 400-800mg PO BEDTIME; Rx Instructions: 400-800mg PO BEDTIME; atorvastatin [Lipitor] 20 mg tablet 20 mg PO HS Qty: 90 3RF levothyroxine 75 mcg tablet 75 mcg PO DAILY Qty: 90 3RF Medical Marijuana See Rx Instructions .ROUTE .COMPLEX Patient Comments: I use it topically, orally and inhalation every day depending on what I am doing. Rx Instructions: I use it topically, orally and inhalation every day depending on what I am doing. Estroven 1 tab PO BEDTIME trisha extract 500 mg capsule PO DAILY Centrum Silver Women 8 mg iron-400 mcg-300 mcg tablet 1 tab PO DAILY ibuprofen 200 mg tablet 400 mg PO Q4-6H PRN (Reason: pain) cetirizine [Zyrtec] 10 mg tablet 10 mg PO DAILY PRN (Reason: allergy symptoms) Microgestin 1.5/30 (21) 1.5-30 mg-mcg tablet 1 tab PO QDAY Qty: 84 3RF Rx Instructions: Take one tablet daily for 90 days skipping placebo pills until 3rd month sertraline [Zoloft] 100 mg tablet 100 mg PO Q DAY Qty: 90 3RF ondansetron 8 mg tablet,disintegrating 8 mg Sublingual Q8HP Qty: 30 3RF Rx Instructions: Take one tablet every 8 hours for nausea and vomiting melatonin 5 mg capsule 10 mg PO DAILY tizanidine 6 mg capsule 6 mg PO TID-QID PRN (Reason: muscle spasticity) Qty: 90 3RF diclofenac sodium 1 % gel 2 gram TOP QID Qty: 100 3RF Rx Instructions: apply to single hand, thumb area up to 4 times a day as needed omeprazole 20 mg capsule,delayed release(DR/EC) 20 mg PO DAILY Qty: 60 0RF fluticasone propionate [Flonase Allergy Relief] 50 mcg/actuation Leigh,Suspension 1 spray INTRANASAL DAILY PRN (Reason: Allergy Symptoms) Prilosec OTC 20 mg Tablet,Delayed Release (Dr/Ec) 20 mg PO DAILY PRN (Reason: Acid Reflux) Referrals: Chika Terrazas ARNP [Primary Care Provider] - Marcela Paulson RN [Non-Staff] - Stand Alone Forms: Patient Portal/API ED Sign-out <Lorenzo Ashford DO - Last Filed: 12/11/22 18:22> Cosign ED Attending Cosignature Attestation: Dr Ashford Co-Sign Statement: I was available for consultation during this patient's emergency department visit. This chart is signed by myself for administrative purposes only. I did not have direct contact with this patient during this visit. They were seen independently by the APC.
[2022-12-11] MEDS: diazePAM 5 MG TABLET PO (15:45)
[2022-12-11] MEDS: KETOROLAC 30 MG/ML VIAL IM (15:45)
== END 2022-12-11 16:52 | disposition home or self-care (01) ==
PROVIDERS: Emergency Provider Physician Assistant; PCP Family Medicine
DX: M54.42 Lumbago with sciatica, left side (principal); S39.012A Strain of muscle, fascia and tendon of lower back, initial encounter; W01.0XXA Fall on same level from slipping, tripping and stumbling without subsequent striking against object, initial encounter
CPT/HCPCS: 96372; 99283; J1885

== ENCOUNTER → 2023-01-23 13:41 | Outpatient (CLI) | payer BC, SELFPAY ==
--- NOTE | 2023-01-23 13:44 | DI.RAD.S_ITS ---
PROCEDURE: XR LUMBAR SPINE 2-3V INDICATIONS: low back pain, right hip pain TECHNIQUE: 3 views of the lumbar spine were acquired. COMPARISON: [facility], , L-SPINE 2-3 VIEWS, 01/26/2008, 13:06. FINDINGS: Bones: 5 [id number] vertebrae are present. Minimal dextrocurvature of the upper lumbar spine. Grade 1 mild retrolisthesis of L3 on L4. Straightening of the normal lumbar lordosis. There is multilevel facet arthropathy, worse at L4-5 and L5-S1. Multilevel disc height loss with degenerative endplate changes and spurring is present. This is most severe at L5-S1. No vertebral body compression fractures. No suspicious bony lesions. Soft tissues: Overlying bowel gas pattern is normal. No suspicious soft tissue calcifications. Partially visualized thoracic spinal cord stimulator. IMPRESSION: Multilevel degenerative changes of the lumbar spine. MRI may be of value for further evaluation. Dictated by: Gurmeet Soria M.D. on 01/23/2023 at 16:01 Approved by: Gurmeet Soria M.D. on 01/23/2023 at 16:02
--- NOTE | 2023-01-23 13:44 | DI.RAD.S_ITS ---
PROCEDURE: XR HIP W PEL IF DONE NANI MIN 4V INDICATIONS: low back pain, right hip pain TECHNIQUE: AP pelvis with lateral view(s) of the bilateral hip(s). COMPARISON: None. FINDINGS: Bones: No fractures or dislocations. Mild degenerative changes of the bilateral hips. Degenerative changes of the visualized lower lumbar spine and pubic symphysis. Pelvic ring appears intact. No suspicious bony lesions. Soft tissues: The visualized bowel gas pattern is normal. No suspicious soft tissue calcifications. Device projecting over the left pelvis. IMPRESSION: Mild degenerative changes of the bilateral hips. Dictated by: Gurmeet Soria M.D. on 01/23/2023 at 15:59 Approved by: Gurmeet Soria M.D. on 01/23/2023 at 16:01
== END ==
PROVIDERS: PCP Nurse Practitioner Family; Referring Provider Nurse Practitioner Family; Visit Provider Nurse Practitioner Family
DX: M47.816 Spondylosis without myelopathy or radiculopathy, lumbar region (principal); M47.817 Spondylosis without myelopathy or radiculopathy, lumbosacral region; M54.50 Low back pain, unspecified; M25.551 Pain in right hip
CPT/HCPCS: 72100; 73521

== ENCOUNTER → 2023-05-07 12:48 | Outpatient (CLI) | payer OTHER, SELFPAY ==
[2023-05-07 13:47] LABS: Add Manual Diff / Slide Review NO; Basophils Absolute Auto 100 /uL (0-100); Basophils Percent Auto 1.1 % (0-2); Eosinophils Absolute Auto 100 /uL (0-450); Eosinophils Percent Auto 1.7 % (2-4); Hematocrit 36.7 % (36-46); Hemoglobin 12.3 g/dL (12.0-16.0); Lymphocytes Absolute Auto 2700 /uL (1100-4500); Lymphocytes Percent Auto 31.7 % (25-40); Mean Corpuscular HGB Conc 33.6 % (30-36); Mean Corpuscular Hemoglobin 29.4 PG (26-34); Mean Corpuscular Volume 87.4 fL (80-100); Monocytes Absolute Auto 700 /uL (0-900); Monocytes Percent Auto 7.7 % (3-14); Neutrophils Absolute Auto 4900 /uL (1500-7000); Neutrophils Percent Auto 57.8 % (50-75); Platelet Count 381 X10^3/uL (150-400); Red Cell Distribution Width 14.4 % (11.6-14.8); White Blood Cell Count 8.5 X10^3/uL (4.5-11.0)
[2023-05-07 13:58] LABS: Alanine Aminotransferase 17 IU/L (<35); Albumin 4.2 g/dL (3.5-5.0); Albumin Globulin Ratio 1.4 (1.0-2.8); Alkaline Phosphatase 61 U/L (38-126); Aspartate Aminotransferase 22 IU/L (14-36); BUN Creatinine Ratio 15.2 (6-22); Bilirubin Total 0.5 mg/dL (0.2-1.3); Blood Urea Nitrogen 12 mg/dL (7-17); Calcium 10.5 mg/dL (8.4-10.2); Carbon Dioxide 32 mmol/L (22-32); Chloride 107 mmol/L (98-107); Cholesterol 180 mg/dL (140-199); Estimated Glomerular Filt Rate > 60 mL/min (>60); Globulin 2.9 g/dL (1.7-4.1); Glucose 105 mg/dL (70-100); HDL Cholesterol 73 mg/dL (40-60); HEMOLYSIS < 15 (0-50); LDL Cholesterol Calculated 89 mg/dL (<100); Potassium 4.1 mmol/L (3.4-5.1); Sodium 140 mmol/L (137-145); Total Protein 7.1 g/dL (6.3-8.2); Triglycerides 88 mg/dL (35-150)
[2023-05-07 14:28] LABS: TSH w/ Reflex to FT4 1.32 uIU/mL (0.47-4.68)
== END ==
LOC: LAB 12:52
PROVIDERS: PCP Nurse Practitioner Family; Referring Provider Nurse Practitioner Family; Visit Provider Nurse Practitioner Family
DX: E03.9 Hypothyroidism, unspecified (principal); E78.5 Hyperlipidemia, unspecified; R42 Dizziness and giddiness
CPT/HCPCS: 36415; 80053; 80061; 84443; 85025

== ENCOUNTER → 2023-09-16 12:56 | Outpatient (CLI) | payer OTHER, SELFPAY ==
[2023-09-16 13:41] LABS: BUN Creatinine Ratio 16.5 (6-22); Blood Urea Nitrogen 15 mg/dL (7-17); Calcium 9.4 mg/dL (8.4-10.2); Carbon Dioxide 31 mmol/L (22-32); Chloride 108 mmol/L (98-107); Estimated Glomerular Filt Rate > 60 mL/min (>60); Glucose 71 mg/dL (70-100); HEMOLYSIS < 15 (0-50); Sodium 141 mmol/L (137-145)
[2023-09-16 14:12] LABS: TSH w/ Reflex to FT4 1.74 uIU/mL (0.47-4.68)
[2023-09-16 17:00] LABS: Vitamin D 25 Hydroxy (D3) 32.7 ng/mL (30.0-100.0)
[2023-09-19 05:39] LABS: Parathyroid Hormone Int 85 pg/mL (15-65)
== END ==
PROVIDERS: PCP Nurse Practitioner Family; Referring Provider Nurse Practitioner Family; Visit Provider Nurse Practitioner Family
DX: E03.9 Hypothyroidism, unspecified (principal); E83.52 Hypercalcemia
CPT/HCPCS: 36415; 80048; 82306; 83970; 84443

== ENCOUNTER → 2023-09-28 13:20 | Outpatient (CLI) | payer OTHER, SELFPAY ==
--- NOTE | 2023-09-28 | DI.US.S_ITS ---
ULTRASOUND OF LEFT BREAST: 09/28/2023 CLINICAL: Follow up from addtional views. Comparison is made to exams dated: 09/28/2023 mammogram, 10/13/2022 ultrasound, 10/13/2022 mammogram, 03/17/2022 ultrasound, 03/17/2022 mammogram, and 01/07/2022 mammogram - [facility]. Color flow and real-time ultrasound of the left breast were performed. There is an oval cyst in the retroareolar region measuring 0.4 x 0.3 x 0.2 centimeter, stable compared to prior. At 3 o'clock, 1 centimeter from the nipple, there is cluster of microcysts measuring 0.7 x 0.3 x 0.7 centimeter, stable compared to prior. At 3 o'clock, 5 centimeters from the nipple there is an oval hypoechoic mass with circumscribed margins measuring 0.3 x 0.2 x 0.3 centimeter, decreased in size compared to prior. IMPRESSION: BENIGN Left breast cysts and clustered microcysts along the 3 o'clock radian are benign. No mammographic or sonographic evidence of malignancy. A 1 year screening mammogram is recommended. Findings and recommendations were conveyed to the patient during today's evaluation. This exam was interpreted at Station ID: [id number]. Electronically Signed By: Katharina Torres M.D., Ph.D. eb/:09/28/2023 15:32:32 letter sent: Normal Exam Ultrasound BI-RADS: 2 Benign
--- NOTE | 2023-09-28 | DI.MG.S_ITS ---
BILATERAL DIGITAL DIAGNOSTIC MAMMOGRAM 3D/2D SHORT-TERM FOLLOW-UP: 09/28/2023 CLINICAL: Short term follow up of the left breast, due for bilateral imaging. Comparison is made to exams dated: 10/13/2022 mammogram, 03/17/2022 mammogram, and 01/07/2022 mammogram - [facility]. Both breasts are heterogeneously dense, which may obscure small masses (category c / 51-75% glandular tissue). The asymmetry in the left breast posterior depth outer region seen on the craniocaudal view only is less prominent compared to mammogram 03/17/2022. No other significant masses, calcifications, or other findings are seen in either breast. IMPRESSION: INCOMPLETE: NEEDS ADDITIONAL IMAGING EVALUATION Left breast asymmetry in the outer posterior depth, less prominent since 03/17/2022. An ultrasound is recommended for further evaluation and is scheduled to immediately follow this examination. Based on Tyrer-Cuzick model (a risk assessment model), the patient's lifetime risk is 27.7% and her 10 year risk is 9.8%. If a patient has an elevated risk, a more comprehensive evaluation should be considered and/or a referral to a genetic counselor. The [place] [employer], [place] [employer], and NCCN Guidelines advise the consideration of Breast MRI as an adjunct to screening mammography in patients whose Lifetime risk to develop breast cancer is 20% or higher. This exam was interpreted at Station ID: [id number]. NOTE: For mammograms, a report in lay terms will be sent to the patient. Approximately 15% of breast malignancies will not be visualized mammographically. In the management of a palpable breast mass, a negative mammogram must not discourage biopsy of a clinically suspicious lesion. Electronically Signed By: Katharina Torres M.D., Ph.D. eb/:09/28/2023 14:32:34 ACR BI-RADS Category 0: Incomplete 3340F
== END ==
PROVIDERS: PCP Nurse Practitioner Family; Referring Provider Nurse Practitioner Family; Visit Provider Nurse Practitioner Family
DX: R92.8 Other abnormal and inconclusive findings on diagnostic imaging of breast; R92.333 Mammographic heterogeneous density, bilateral breasts; N60.02 Solitary cyst of left breast
CPT/HCPCS: 76642; 77066; G0279

== ENCOUNTER → 2023-11-06 12:47 | Outpatient (CLI) | payer OTHER, SELFPAY ==
--- NOTE | 2023-11-06 12:48 | DI.RAD.S_ITS ---
PROCEDURE: XR DEXA AXIAL SKELETON INDICATIONS: HYPERPARATHYROIDISM COMPARISON: None. FINDINGS: Lumbar Spine: Bone mineral density 1.074 g/cm2, T score 0.2. Left Hip: Bone mineral density 0.771 g/cm2, T score -1.4 Left Femoral Neck: Bone mineral density 0.598 g/cm2, T score -2.3. Right Hip: Bone mineral density 0.765 g/cm2, T score -1.5. Right Femoral Neck: Bone mineral density 0.589 g/cm2, T score -2.3. Fracture Risk Calculation (when applicable): 10-year fracture risk of a major osteoporotic fracture 16% and of a hip fracture 1.4%. (T score greater or equal to -1.0 to: NORMAL) (T score from -1.1 to -2.4: OSTEOPENIA) (T score less than or equal to -2.5: OSTEOPOROSIS) IMPRESSION: Osteopenia with increased 10 year fracture risk as above. Follow-up guidelines as follows: Osteoporosis: Consider a repeat DEXA and Vertebral Fracture Assessment (VFA) exam in 2 years or sooner if medically necessary, to reassess this patient's status. Osteopenia: Consider a repeat DEXA in 2-3 years to reassess this patient's status, or if there is a new clinical indication. Normal: Consider a repeat DEXA in 5 years or sooner, or if there is a new clinical indication. All treatment decisions require clinical judgment and consideration of individual patient factors, including patient preferences, comorbidities, previous drug use, risk factors not captured in the FRAX model (e.g., frailty, falls, vitamin D deficiency, increased bone turnover, interval significant decline in bone density ) and possible under- or over-estimation of fracture risk by FRAX. In addition, the NOF Guide recommends that FDA-approved medical therapies be considered in postmenopausal women and men age >= 50 years with a: * Hip or vertebral (clinical or morphometric) fracture * T-score of <=-2.5 at the spine or hip * Ten-year fracture probability by FRAX of >= 3% for hip fracture or >=20% for major osteoporotic fracture. People with diagnosed cases of osteoporosis or at high risk for fracture should have regular bone mineral density tests. For patients eligible for Medicare, routine testing is allowed once every 2 years. The testing frequency can be increased to one year for patients who have rapidly progressing disease, those who are receiving or discontinuing medical therapy to restore bone mass, or have additional risk factors. Dictated by: Bradley Duncan M.D. on 11/06/2023 at 14:24 Approved by: Bradley Duncan M.D. on 11/06/2023 at 14:28
== END ==
PROVIDERS: PCP Nurse Practitioner Family; Referring Provider Nurse Practitioner Family; Visit Provider Nurse Practitioner Family
DX: E21.3 Hyperparathyroidism, unspecified (principal); M85.80 Other specified disorders of bone density and structure, unspecified site
CPT/HCPCS: 77080

== ENCOUNTER 2024-03-21 16:40 | Emergency (ER) | payer OTHER, SELFPAY ==
[2024-03-21] VITALS (7 sets, daily range): BP systolic 129–171; BP diastolic 84–103; PULSE 69–82; RESP 18; TEMP 37.3; O2SAT 97–100; BMI 20.8
[2024-03-21] MEDS: KETOROLAC 30 MG/ML VIAL 15 MG IV (17:30)
[2024-03-21 17:37] LABS: Add Manual Diff / Slide Review NO; Basophils Absolute Auto 100 /uL (0-100); Basophils Percent Auto 0.9 % (0-2); Eosinophils Absolute Auto 200 /uL (0-450); Eosinophils Percent Auto 1.4 % (2-4); Hematocrit 37.3 % (36-46); Hemoglobin 12.4 g/dL (12.0-16.0); Lymphocytes Absolute Auto 3200 /uL (1100-4500); Lymphocytes Percent Auto 27.1 % (25-40); Mean Corpuscular HGB Conc 33.3 % (30-36); Mean Corpuscular Hemoglobin 29.1 PG (26-34); Mean Corpuscular Volume 87.4 fL (80-100); Monocytes Absolute Auto 700 /uL (0-900); Monocytes Percent Auto 6.3 % (3-14); Neutrophils Absolute Auto 7700 /uL (1500-7000); Neutrophils Percent Auto 64.3 % (50-75); Platelet Count 433 X10^3/uL (150-400); Red Blood Cell Count 4.27 X10^6/uL (4.0-5.2); White Blood Cell Count 11.9 X10^3/uL (4.5-11.0)
[2024-03-21 17:48] LABS: Alanine Aminotransferase 17 IU/L (<35); Albumin 4.8 g/dL (3.5-5.0); Albumin Globulin Ratio 1.7 (1.0-2.8); Alkaline Phosphatase 52 U/L (38-126); Aspartate Aminotransferase 24 IU/L (14-36); BUN Creatinine Ratio 14.3 (6-22); Bilirubin Total 0.4 mg/dL (0.2-1.3); Blood Urea Nitrogen 13 mg/dL (7-17); Calcium 10.5 mg/dL (8.4-10.2); Carbon Dioxide 29 mmol/L (22-32); Chloride 104 mmol/L (98-107); Estimated Glomerular Filt Rate > 60 mL/min (>60); Globulin 2.8 g/dL (1.7-4.1); Glucose 88 mg/dL (70-100); HEMOLYSIS 21 (0-50); Lipase 1686 U/L (23-300); Potassium 3.3 mmol/L (3.4-5.1); Sodium 140 mmol/L (137-145); Total Protein 7.6 g/dL (6.3-8.2)
--- NOTE | 2024-03-21 18:08 | ED.GENADULT ---
HPI - General Adult General Chief complaint: Abdominal Pain Stated complaint: GLF t-3, Blood in Urine, Abd Discomfort Time Seen by Provider: 03/21/24 17:32 Source: patient and family Mode of arrival: Ambulatory History of Present Illness HPI narrative: 58-year-old female who is here for evaluation right-sided/right lower quadrant abdominal pain. States symptoms have been present for the past 3 days. She was also noticed some blood in her urine. Three days ago she did trip and fall. She landed on her left side however the discomfort is on the right side of her abdomen. No upper abdominal pain. No vomiting. No fevers. No change in bowel habits. She does have some bruising over her left hip from the fall but no other skin changes. Related Data Home Medications Medication Instructions Recorded Confirmed ferrous sulfate 325 mg (65 mg 325 mg PO QDAY ##0 12/22/16 04/06/19 iron) tablet (Feosol) fluticasone propionate 50 1 spray intranasal DAILY PRN 05/13/18 04/06/19 mcg/actuation nasal Allergy Symptoms spray,suspension (Flonase Allergy Relief) omeprazole magnesium 20 mg 20 mg PO DAILY PRN Acid Reflux 05/13/18 04/06/19 tablet,delayed release (Prilosec OTC) Estroven 1 tab PO BEDTIME 08/30/18 04/06/19 Medical Marijuana See Rx Instructions .Route .COMPLEX 08/30/18 04/06/19 cetirizine 10 mg tablet (Zyrtec) 10 mg PO DAILY PRN allergy symptoms 08/30/18 04/06/19 ibuprofen 200 mg tablet 400 mg PO Q4-6H PRN pain 08/30/18 04/06/19 trisha extract 500 mg capsule cap PO DAILY 08/30/18 04/06/19 typrgsdd-eaio-fobg 8 mg-folic 400 1 tab PO DAILY 08/30/18 04/06/19 mcg-K 50 mcg-lutein 300 mcg tablet (Centrum Silver Women) melatonin 5 mg capsule 10 mg PO DAILY 09/28/18 04/06/19 Previous Rx's Medication Instructions Recorded norethindrone acetate 1.5 1 tab PO QDAY #84 tabs 08/30/18 mg-ethinyl estradiol 30 mcg tablet (Microgestin) ondansetron 8 mg disintegrating 8 mg sublingual Q8HP nausea and 08/30/18 tablet vomiting ##30 sertraline 100 mg tablet (Zoloft) 100 mg PO Q DAY #90 tabs 08/30/18 omeprazole 20 mg capsule,delayed 20 mg PO DAILY #60 caps 10/18/18 release gabapentin 400 mg capsule See Rx Instructions PO BEDTIME 02/11/19 #180 caps atorvastatin 20 mg tablet (Lipitor) 20 mg PO HS #90 tabs 02/25/19 levothyroxine 75 mcg tablet 75 mcg PO DAILY #90 tabs 02/25/19 diclofenac sodium 1 % topical gel 2 gram topical QID #100 grams 04/06/19 tizanidine 6 mg capsule 6 mg PO TID-QID PRN muscle 04/06/19 spasticity #90 caps diazepam 2 mg tablet 2 mg PO TID PRN muscle spasm #10 12/11/22 tabs hydrocodone 5 mg-acetaminophen 325 1 tab PO Q4-6H PRN pain #10 tabs 03/21/24 mg tablet hydrocodone 5 mg-acetaminophen 325 1 tab PO Q4-6H PRN pain #10 tabs 03/21/24 mg tablet ondansetron 4 mg disintegrating 4 mg PO Q6H PRN nausea and 03/21/24 tablet vomiting #10 tabs ondansetron 4 mg disintegrating 4 mg PO Q6H PRN nausea and 03/21/24 tablet vomiting #10 tabs tamsulosin 0.4 mg capsule (Flomax) 0.4 mg PO DAILY #14 caps 03/21/24 tamsulosin 0.4 mg capsule (Flomax) 0.4 mg PO DAILY #14 caps 03/21/24 Allergies Allergy/AdvReac Type Severity Reaction Status Date / Time latex Allergy Mild EDEMA Verified 04/06/19 10:56 fluoxetine AdvReac Severe I DIDN'T Verified 04/06/19 10:56 FEEL LIKE MYSELF, LIKE ON THE OUTSIDE LOOKING IN Review of Systems Review of Systems ROS Unobtainable: All systems reviewed & are unremarkable except as noted in HPI and below Patient History Medical History Herpes Irregular menstrual cycle GERD (gastroesophageal reflux disease) Kidney stones Hypothyroidism (07/18/15) Hyperlipidemia (07/18/15) Asthma (10/19/12) Allergic rhinitis due to pollen (01/12/12) Degeneration of intervertebral disc of lumbar region Depression Mitral valve prolapse (07/10/10) History of anxiety Other mechanical complication of other implanted electronic stimulator of nervous system, initial encounter Chronic low back pain with bilateral sciatica Chronic pain syndrome Surgical History Hx of appendectomy Hx of tubal ligation Hx of laminectomy (10/2012) Status post exploratory laparotomy History of spinal fusion Status post dilation and curettage History of fusion of cervical spine Family History Father Drug abuse Rheumatoid arthritis Grandmother Heart disease Mother Alcoholic Arthritis Cancer Diabetes mellitus Heart disease Hypertension High cholesterol History of stroke Social History household members: spouse Smoking Status: Former smoker Tobacco: How many years used: 37 second hand exposure: Yes (my smokes) alcohol intake: current substance use type: marijuana Smoking Status: Former smoker Exam Initial Vital Signs Initial Vital Signs: Vital Signs Temperature 99.1 F 03/21/24 16:44 Pulse Rate 82 03/21/24 16:44 Respiratory Rate 18 03/21/24 16:44 Blood Pressure 171/91 H 03/21/24 16:44 Pulse Oximetry 98 03/21/24 16:44 Oxygen Delivery Method Room Air 03/21/24 16:44 Const General: cooperative, comfortable and No ill appearing HENMT Head: normal to inspection and normocephalic Resp Effort & Inspection: normal respiratory effort Auscultation: clear to auscultation bilaterally Cardio Rate: regular rate Rhythm: regular rhythm GI Inspection: non-distended Palpation: soft, No firm, No guarding and tender Back/Spine/Pelvis Back: No CVA tenderness Skin General: no rashes or lesions noted Neuro General: patient alert, patient awake, patient oriented x3 and moves all extremities Extrem General: capillary refill normal Course Orders Ordered: ED Orders 03/21/24 17:23 CBC Auto Diff [Complete Blood Count AUTO DIFF] Stat CMP [Comprehensive Metabolic Panel] Stat Lipase Stat 03/21/24 18:09 CT abdomen pelvis w con Stat 03/21/24 18:45 Urine Microscopic Stat Discontinued Medications Hydrocodone Bitart/Acetaminophen (Hydrocodone/Acet 5/325 Prepack) 1 bottle MISC DIRECTED ONE Stop: 03/21/24 21:09 Last Admin: 03/21/24 21:17 Dose: 1 bottle Documented By: MARICEL Ketorolac Tromethamine (Ketorolac 30 Mg/Ml Vial) 15 mg IV NOW ONE Stop: 03/21/24 17:11 Last Admin: 03/21/24 17:30 Dose: 15 mg Documented By: VAN Ondansetron HCl (Ondansetron 4 Mg Odt Prepack) 1 bottle MISC DIRECTED ONE Stop: 03/21/24 21:09 Last Admin: 03/21/24 21:17 Dose: 1 bottle Documented By: MARICEL Tamsulosin HCl (Tamsulosin 0.4 Mg Capsule) 0.4 mg PO NOW ONE Stop: 03/21/24 21:07 Last Admin: 03/21/24 21:17 Dose: 0.4 mg Documented By: MARICEL Vital Signs Vital signs: Vital Signs - 8 hr 03/21/24 17:35 03/21/24 17:36 03/21/24 17:36 Pulse Rate 73 Respiratory Rate Blood Pressure 164/97 H Pulse Oximetry 100 99 Oxygen Delivery Method 03/21/24 18:00 03/21/24 18:00 03/21/24 18:30 Pulse Rate 71 Respiratory Rate Blood Pressure 137/86 129/84 Pulse Oximetry 97 Oxygen Delivery Method 03/21/24 18:30 03/21/24 21:20 03/21/24 21:23 Pulse Rate 69 Respiratory Rate Blood Pressure 167/103 H Pulse Oximetry 97 99 Oxygen Delivery Method Room Air Room Air 03/21/24 21:23 Pulse Rate 70 Respiratory Rate 18 Blood Pressure Pulse Oximetry 100 Oxygen Delivery Method Room Air Medical Decision Making Lab Data Lab results reviewed: Yes I reviewed the patient's lab results. 03/21/24 17:23 03/21/24 17:23 Labs: Lab Results 03/21/24 03/21/24 Range/Units 17:23 18:45 WBC 11.9 H (4.5-11.0) X10^3/uL RBC 4.27 (4.0-5.2) X10^6/uL Hgb 12.4 (12.0-16.0) g/dL Hct 37.3 (36-46) % MCV 87.4 (80-100) fL MCH 29.1 (26-34) PG MCHC 33.3 (30-36) % RDW 15.0 H (11.6-14.8) % Plt Count 433 H (150-400) X10^3/uL Neut % (Auto) 64.3 (50-75) % Lymph % (Auto) 27.1 (25-40) % [place] % (Auto) 6.3 (3-14) % Eos % (Auto) 1.4 L (2-4) % Baso % (Auto) 0.9 (0-2) % Neut # (Auto) 7700 H (9549-1719) /uL Lymph # (Auto) 3200 (2308-5062) /uL [place] # (Auto) 700 (0-900) /uL Eos # (Auto) 200 (0-450) /uL Baso # (Auto) 100 (0-100) /uL Sodium 140 (137-145) mmol/L Potassium 3.3 L (3.4-5.1) mmol/L Chloride 104 (98-107) mmol/L Carbon Dioxide 29 (22-32) mmol/L BUN 13 (7-17) mg/dL Creatinine 0.91 (0.52-1.04) mg/dL Estimated GFR > 60 (>60) mL/min BUN/Creatinine Ratio 14.3 (6-22) Glucose 88 (70-100) mg/dL Calcium 10.5 H (8.4-10.2) mg/dL Total Bilirubin 0.4 (0.2-1.3) mg/dL AST 24 (14-36) IU/L ALT 17 (<35) IU/L Alkaline Phosphatase 52 (38-126) U/L Total Protein 7.6 (6.3-8.2) g/dL Albumin 4.8 (3.5-5.0) g/dL Globulin 2.8 (1.7-4.1) g/dL Albumin/Globulin Ratio 1.7 (1.0-2.8) Lipase 1686 H (23-300) U/L Urine RBC 10-30/hpf H (0-5/HPF) Urine WBC 1-5/hpf (0-5/HPF) Ur Squamous Epith Cells 1-5 /hpf (0-5/HPF) Urine Bacteria Few (2-10) H (None) Ur Culture Indicated? Cult not indicated Vol Urine Centrifuged 10ml (spun) Urine Dip Bedside Urine Glucose Negative Bedside Urine Bilirubin - Negative Bedside Urine Ketone - Negative Urine Specific [place] 1.010 Bedside Urine Occult Blood +++ Bedside Urine pH 7.0 Bedside Urine Protein - Negative Bedside Urine Urobilinogen - Negative Bedside Urine Nitrite - Negative Bedside Urine Leukocytes - Negative Esterase Point of care testing: Urine Dip Bedside Urine Glucose Negative Bedside Urine Bilirubin - Negative Bedside Urine Ketone - Negative Urine Specific [place] 1.010 Bedside Urine Occult Blood +++ Bedside Urine pH 7.0 Bedside Urine Protein - Negative Bedside Urine Urobilinogen - Negative Bedside Urine Nitrite - Negative Bedside Urine Leukocytes - Negative Esterase Imaging Data CT scan - abdomen/pelvis: Radiologist's Impression: PROCEDURE: CT ABDOMEN PELVIS W CON INDICATIONS: RLQ pain with diarrhea TECHNIQUE: After the administration of intravenous contrast, axial sections acquired from the lung bases to the pubic symphysis. Coronal and sagittal reformats were performed. For radiation dose reduction, the following was used: automated exposure control, adjustment of mA and/or kV according to patient size. COMPARISON: None. FINDINGS: Image quality: Diagnostic. Lower Chest: Mild bibasilar scarring. ABDOMEN: Liver: 1.1 cm hypervascular lesion in the the low aspect of segment six subcapsular hypodensity along the posterior aspect of segment seven at the liver dome measuring 2.3 cm with peripheral nodular areas of hyperenhancement. Right lobe of the liver is elongated. Gallbladder: No wall thickening or calcified stones. Biliary ducts: No biliary dilation. Pancreas: Mildly prominent pancreas with mild smooth pancreatic ductal dilatation in the tail measuring just over 3 mm. No peripancreatic inflammation. Spleen: Size is within normal limits. Adrenal Glands: No adrenal nodules. Kidneys and Ureters: Punctate nonobstructing stones in both collecting systems, largest in the left midpole calyx measures 1.1 cm with Hounsfield units of 1600. There is very slight right hydronephrosis and urothelial enhancement of the proximal right ureter. At the level of L4, there is a 0.5 cm ureteral stone with Hounsfield units of 855. Distally the ureter is decompressed. No definite left ureteral stones. Stomach and Bowel: Stomach is normal. Small bowel loops are normal caliber, several with air-fluid levels. Liquid stool in the nondistended colon. No pathologic colon wall thickening. The appendix was not well seen. No focal right lower quadrant inflammation. Peritoneum: No abnormal intraperitoneal fluid. No free air. Ventral Wall: Tiny fat containing umbilical hernia. Abdominal Nodes: No retroperitoneal or mesenteric adenopathy by size criteria. Vessels: The abdominal aorta, IVC, and portal vein are of normal caliber. PELVIS: Pelvic Organs: Anteverted uterus demonstrates heterogeneous appearance of the fundus suggesting multiple small fibroids. Probable tubal ligation clips. No suspicious adnexal masses. Bladder: Partially decompressed. No bladder calculi. Slight bladder wall thickening. Pelvic Nodes: No enlarged lymph nodes. Miscellaneous: No inguinal hernias are seen. Bones: Multilevel degenerative disc and endplate changes. No suspicious bone lesions. IMPRESSION: 5 mm obstructing stone in the right mid ureter causing minor right hydronephrosis. Multiple bilateral nonobstructing intrarenal calculi. Findings suggesting small large bowel ileus, probably reactive. The appendix is not seen. There are small liver lesions which are probably benign hemangiomas. These were previously described however prior images are not available for direct comparison. Slight pancreatic ductal prominence, nonspecific. Correlate with lab values. MDM Narrative Medical decision making narrative: Patient does have an elevation in her lipase however she has no signs of an acute pancreatitis on her CT scan and she has no epigastric or left upper quadrant abdominal pain. She was informed this abnormal lab value and instructed to contact her primary care doctor for follow-up. She was a benign abdominal exam. CT scan does show right-sided mid ureteral 5 mm stone with mild hydro. Her urinalysis is not consistent with a UTI. Her kidney functions unremarkable. Her pain is relatively well controlled. Plan will be to discharge home with symptom control. She was given strict follow-up instructions. She was given information for follow-up with Urology. No indication for antibiotics. She was given return precautions. She expressed understanding and agreement plan. Discharge Plan Departure Patient Disposition: Home Clinical Impression: Renal colic on right side, Right ureteral stone Instructions: DI for Kidney Stones Activity Restrictions/Additional Instructions: Continue to take all of your medications as directed. I do recommend that you contact your primary care doctor for a follow-up to discuss your blood work today. Also recommend that you contact the urology department with the number provided below for follow-up as well. Return to the emergency department for new or worsening symptoms like we discussed. Prescriptions: New tamsulosin [Flomax] 0.4 mg capsule 0.4 mg PO DAILY Qty: 14 0RF ondansetron 4 mg tablet,disintegrating 4 mg PO Q6H PRN (Reason: nausea and vomiting) Qty: 10 0RF hydrocodone-acetaminophen 5-325 mg tablet 1 tab PO Q4-6H PRN (Reason: pain) Qty: 10 0RF ondansetron 4 mg tablet,disintegrating 4 mg PO Q6H PRN (Reason: nausea and vomiting) Qty: 10 0RF tamsulosin [Flomax] 0.4 mg capsule 0.4 mg PO DAILY Qty: 14 0RF hydrocodone-acetaminophen 5-325 mg tablet 1 tab PO Q4-6H PRN (Reason: pain) Qty: 10 0RF No Action ferrous sulfate [Feosol] 325 MG tablet 325 mg PO QDAY Qty: 0 gabapentin 400 mg capsule See Rx Instructions PO BEDTIME Qty: 180 1RF Dose Instruction: 400-800mg PO BEDTIME; Rx Instructions: 400-800mg PO BEDTIME; atorvastatin [Lipitor] 20 mg tablet 20 mg PO HS Qty: 90 3RF levothyroxine 75 mcg tablet 75 mcg PO DAILY Qty: 90 3RF Medical Marijuana See Rx Instructions .ROUTE .COMPLEX Patient Comments: I use it topically, orally and inhalation every day depending on what I am doing. Rx Instructions: I use it topically, orally and inhalation every day depending on what I am doing. Estroven 1 tab PO BEDTIME trisha extract 500 mg capsule PO DAILY Centrum Silver Women 8 mg iron-400 mcg-300 mcg tablet 1 tab PO DAILY ibuprofen 200 mg tablet 400 mg PO Q4-6H PRN (Reason: pain) cetirizine [Zyrtec] 10 mg tablet 10 mg PO DAILY PRN (Reason: allergy symptoms) Microgestin 1.5/30 (21) 1.5-30 mg-mcg tablet 1 tab PO QDAY Qty: 84 3RF Rx Instructions: Take one tablet daily for 90 days skipping placebo pills until 3rd month sertraline [Zoloft] 100 mg tablet 100 mg PO Q DAY Qty: 90 3RF ondansetron 8 mg tablet,disintegrating 8 mg Sublingual Q8HP Qty: 30 3RF Rx Instructions: Take one tablet every 8 hours for nausea and vomiting melatonin 5 mg capsule 10 mg PO DAILY tizanidine 6 mg capsule 6 mg PO TID-QID PRN (Reason: muscle spasticity) Qty: 90 3RF diclofenac sodium 1 % gel 2 gram TOP QID Qty: 100 3RF Rx Instructions: apply to single hand, thumb area up to 4 times a day as needed omeprazole 20 mg capsule,delayed release(DR/EC) 20 mg PO DAILY Qty: 60 0RF diazepam 2 mg tablet 2 mg PO TID PRN (Reason: muscle spasm) Qty: 10 0RF fluticasone propionate [Flonase Allergy Relief] 50 mcg/actuation [place],Suspension 1 spray INTRANASAL DAILY PRN (Reason: Allergy Symptoms) Prilosec OTC 20 mg Tablet,Delayed Release (Dr/Ec) 20 mg PO DAILY PRN (Reason: Acid Reflux) Referrals: Cb Malik DO [Physician] - Marcela Paulson ARNP, RN [Primary Care Provider] - Stand Alone Forms: Patient Portal/API/Survey
[2024-03-21 19:45] LABS: RBC Urine 10-30/HPF (0-5/HPF); Urine Volume 10mL (spun); WBC Urine 1-5/HPF (0-5/HPF)
[2024-03-21 19:46] LABS: Bacteria Urine Few (2-10); Culture Indicated Urine Cult Not Indicated; Squamous Epithelial Cell Urine 1-5 /HPF (0-5/HPF)
[2024-03-21] MEDS: ONDANSETRON 4 MG ODT PREPACK 1 BOTTLE MISC (21:17)
[2024-03-21] MEDS: HYDROCODONE/ACET 5/325 PREPACK 1 BOTTLE MISC (21:17)
[2024-03-21] MEDS: TAMSULOSIN 0.4 MG CAPSULE PO (21:17)
== END 2024-03-21 21:35 | disposition home or self-care (01) ==
PROVIDERS: Emergency Medicine; Emergency Provider Emergency Medicine; PCP Nurse Practitioner Family
DX: N23 Unspecified renal colic (principal); N20.1 Calculus of ureter; R19.7 Diarrhea, unspecified; R31.9 Hematuria, unspecified
CPT/HCPCS: 36415; 74177; 80053; 81003; 81015; 83690; 85025; 96374; 99284; J1885; Q9967

== ENCOUNTER → 2025-02-22 12:50 | Outpatient (CLI) | payer OTHER, SELFPAY ==
--- NOTE | 2025-02-22 12:52 | DI.MG.S_ITS ---
MM screening mammo BI: 02/22/2025. BI-RADS: 0 CLINICAL: 59-year old female for bilateral screening mammogram. Tyrer-Cuzick lifetime risk of 14.9%. No personal or first-degree family history of breast cancer. Current reported family history of breast cancer: maternal grandmother, maternal aunt and paternal aunt. PRIOR EXAMS 09/28/2023, 10/13/2022, 03/17/2022, 01/07/2022. MAMMOGRAPHY TECHNIQUE: 2D and 3D (tomosynthesis) digital mammographic views obtained, with additional images as needed for full coverage. Current study was also evaluated with a Computer Aided Detection (CAD) system. DENSITY C. The breasts are heterogeneously dense, which may obscure small masses. MAMMOGRAPHY FINDINGS Right: Inner Central, Middle depth: Focal asymmetry needing additional imaging evaluation. Left: No suspicious mass, asymmetry, microcalcification, or other abnormality seen. IMPRESSION: Right (Asymmetry): Inner Central, Middle depth * Incomplete - focal asymmetry needing additional imaging evaluation. Left * No evidence of malignancy. RECOMMENDATIONS Right: Inner Central, Middle depth * Further evaluation with diagnostic mammography and diagnostic ultrasound. Ultrasound to be performed only if needed. OVERALL ASSESSMENT CATEGORY BI-RADS-0: Incomplete - Need Additional Imaging Evaluation. ELECTRONICALLY SIGNED: Katharina Torres M.D. on 02/25/2025 at 03:08:56 AM PT Interpreting Station ID: [id number]
== END ==
LOC: MAMMO 12:51
PROVIDERS: PCP Student in an Organized Health Care Education/Training Program; Referring Provider Student in an Organized Health Care Education/Training Program; Visit Provider Student in an Organized Health Care Education/Training Program
DX: Z12.31 Encounter for screening mammogram for malignant neoplasm of breast (principal); R92.333 Mammographic heterogeneous density, bilateral breasts; Z80.3 Family history of malignant neoplasm of breast
CPT/HCPCS: 77063; 77067